=== PATIENT | male | born 1965 | race Caucasian/White ===

== ENCOUNTER 2023-06-20 19:05 | Emergency (ER) | payer BC, OTHER ==
[~2023-06-20] VITALS: Ht 170.2 cm; Wt 77.1 kg
[2023-06-20] MEDS ORDERED: MORPHINE SULFATE 4 MG/1 ML DISP.SYRIN IV ONE (19:45)
[2023-06-20] MEDS ORDERED: MORPHINE SULFATE 4 MG/1 ML DISP.SYRIN ONE (19:52)
[2023-06-20] MEDS ORDERED: KETOROLAC TROMETHAMINE 15 MG INJ ONE (20:27)
[2023-06-20] MEDS ORDERED: KETOROLAC TROMETHAMINE 15 MG INJ IVP ONE (20:30)
[2023-06-20] MEDS ORDERED: OXYC5TAB3 PO (20:47)
[2023-06-20 21:13] VITALS: BP 138/82; TEMP 98; O2SAT 100
== END 2023-06-20 21:10 | disposition home or self-care (01) ==
LOC: ER 19:06
DX: S43.101A Unspecified dislocation of right acromioclavicular joint, initial encounter (principal); R51.9 Headache, unspecified; E10.9 Type 1 diabetes mellitus without complications; E03.9 Hypothyroidism, unspecified; Z79.899 Other long term (current) drug therapy; V00.131A Fall from skateboard, initial encounter; Y93.51 Activity, roller skating (inline) and skateboarding; Y92.89 Other specified places as the place of occurrence of the external cause; Y99.8 Other external cause status
CPT/HCPCS: 99285; 96374; 70450; 96375; 73030; J1885; J2270; A4663